=== PATIENT | female | born 1995 | race African-American/Black ===

== ENCOUNTER 2016-07-15 14:46 | Emergency (ER) | payer OTHER ==
[~2016-07-15] VITALS: Ht 157.5 cm; Wt 55.0 kg
[~2016-07-15 14:46] MED LIST: IBUP800T23 PO; ROBA750T3 PO; ZITH250T PO
[2016-07-15 14:49] VITALS: BP 124/58; PULSE 93; RESP 16; TEMP 98; O2SAT 99
[2016-07-15] MEDS ORDERED: BENZ100 PO (15:36)
[2016-07-15] MEDS ORDERED: MEDR4PAK PO (15:36)
[2016-07-15] MEDS ORDERED: ZITHTAB PO (15:36)
--- NOTE | 2016-07-15 15:38 | PD ---
HPI Chief Complaint: ENT Complaint Time Seen by Provider: 15:36 Travel History International Travel<30 days: No Contact w/Intl Traveler<30days: No Traveled to known affect area: No History of Present Illness HPI 20-year-old female presents to the emergency department for evaluation of cough for 2 weeks. Patient states that 2 weeks ago she had cold symptoms with runny nose, nasal congestion, fever and cough. States that since then the cough has persisted and worsened. States she not shortness of breath and productive cough with green sputum. Denies any chest pain, lightheadedness, dizziness, nausea, vomiting, diarrhea. States she has been taking smvv-[id number]-[id number] cough medications without improvement of symptoms. Denies any medical conditions. Denies , last menstrual period 3 days ago. No recent travel or sick contacts. No other complaints. PFSH Past Medical History Medical History: Denies Significant Hx ?: Not LMP: 07/11/16 Social History Alcohol Use: No Tobacco Use: No Substance Use: No Allergies-Medications (Allergen,Severity, Reaction): Coded Allergies: No Known Allergies (Unverified , 07/15/16) Reported Meds & Prescriptions Reported Meds & Active Scripts Active Tessalon Perles (Benzonatate) 100 Mg Cap 100 Mg PO TID PRN 7 Days Medrol Dosepak (Methylprednisolone) 4 Mg Dspk 4 Mg PO DIRECTED Per Pharmacist direction Zithromax Z-Sanjay (Azithromycin) 250 Mg Dspk 250 Mg PO DIRECTED 500 MG (2 tabs) day 1, then 1 tab days 2-5. Review of Systems Except as stated in HPI: all other systems reviewed are Neg Physical Exam Narrative GENERAL: Well-nourished and well-developed pleasant female patient in no acute distress. SKIN: Warm and dry. HEAD: Normocephalic and atraumatic. EYES: No injection, drainage, or hyphema noted. PERRLA. EOMI. ENT: No nasal drainage noted. Oropharynx is clear and the TMs are normal with good landmarks. NECK: Supple and the trachea is midline. CARDIOVASCULAR: Regular rate and rhythm. RESPIRATORY: Decreased breath sounds at the left lung base. No accessory muscle use, wheezing, rhonchi, or crackles. NEUROLOGICAL: Awake, alert, and oriented. Normal speech and gait. Cranial nerves are grossly intact. Data Data Last Documented VS Vital Signs Date Time Temp Pulse Resp B/P Pulse Ox O2 Delivery O2 Flow Rate FiO2 07/15/16 14:49 98.0 93 16 124/58 99 MDM Medical Decision Making Medical Screen Exam Complete: Yes Emergency Medical Condition: Yes Differential Diagnosis Bronchitis versus viral illness versus early pneumonia Narrative Course 20-year-old female presents to the emergency department for evaluation of productive cough for 2 weeks. Patient is afebrile, vital signs are stable. She does have a little bit of decreased lung sounds in the left base but overall physical exam is unremarkable. We'll treat the patient for early pneumonia with a Z-Sanjay, Medrol Dosepak and Tessalon Perles. Discussed supportive care and when to return to the emergency Department. Advised follow- up with her PCP. Patient verbalizes understanding and agreement with treatment plan. Diagnosis Primary Impression: Acute bronchitis Qualified Code: J20.9 - Acute bronchitis, unspecified organism Referrals: Primary Care Physician Patient Instructions: Acute Bronchitis (ED), General Instructions Additional Instructions: Take [id number] Mucinex DM as directed on the box. Take medications as prescribed. Follow-up with your Primary Care Physician. Return to the ED for any acute worsening of symptoms. Med/Other Pt SpecificInfo: Prescription(s) given Scripts Benzonatate (Tessalon Perles)100 Mg [id number] Mg PO TID PRN (COUGH) 7 Days Ref 0 Prov:Rich Keith MD 07/15/16 Methylprednisolone Dosepak (Medrol Dosepak)4 Mg Dspk4 Mg PO DIRECTED #1 DSPK Ref 0 Per Pharmacist direction Prov:Rich Keith MD 07/15/16 Azithromycin (Zithromax Z-Sanjay)250 Mg [id number] Mg PO DIRECTED #1 DSPK Ref 0 500 MG (2 tabs) day 1, then 1 tab days 2-5. Prov:Rich Keith MD 07/15/16 Disposition: 01 DISCHARGE HOME Condition: Stable Pratima Sánchez Jul 15, 2016 15:38
== END 2016-07-15 16:18 | disposition home or self-care (01) ==
LOC: NEPB 14:46
DX: J20.9 Acute bronchitis, unspecified (principal)
CPT/HCPCS: 99283

== ENCOUNTER 2016-07-31 01:07 | Emergency (ER) | payer OTHER ==
[~2016-07-31 01:07] MED LIST changes: +BENZ100 PO; -IBUP800T23 PO; +MEDR4PAK PO; -ROBA750T3 PO; -ZITH250T PO; +ZITHTAB PO
[2016-07-31 01:09] VITALS: BP 114/68; PULSE 67; RESP 14; TEMP 98.1; O2SAT 100
--- NOTE | 2016-07-31 02:22 | PD ---
HPI Chief Complaint: Training Project Manager Problem/Complaint Time Seen by Provider: 02:09 Travel History International Travel<30 days: No Contact w/Intl Traveler<30days: No Traveled to known affect area: No History of Present Illness HPI The patient is a 20-year-old Mire[place] female who presents emergency department for evaluation of possible sexually transmitted infections. The patient states she has been having protected sex for the last month and would like to be checked for HIV, gonorrhea, chlamydia, and any other sexual transmitted infections. The patient denies any current vaginal discharge, dysuria, frequency, or urgency. She does complain of irregular menstrual cycles , states she is currently on her menstrual cycle. The patient denies a fever, chills, or sweats. The patient denies any nausea, vomiting, diarrhea, abdominal pain, or pelvic pain. PFSH Past Medical History Medical History: Denies Significant Hx Diminished Hearing: No Immunizations Current: Yes Tetanus Vaccination: Unknown Influenza Vaccination: No ?: Not LMP: 07/30/2016 Social History Alcohol Use: No Tobacco Use: No Substance Use: No Allergies-Medications (Allergen,Severity, Reaction): Coded Allergies: No Known Allergies (Unverified , 07/31/16) Reported Meds & Prescriptions Reported Meds & Active Scripts Active Tessalon Perles (Benzonatate) 100 Mg Cap 100 Mg PO TID PRN 7 Days Zithromax Z-Sanjay (Azithromycin) 250 Mg Dspk 250 Mg PO DIRECTED 500 MG (2 tabs) day 1, then 1 tab days 2-5. Review of Systems General / Constitutional: No: Fever Gastrointestinal: No: Nausea, Vomiting, Abdominal Pain Genitourinary: Positive: Vaginal Bleeding (currently on her menstrual cycle), No: Urgency, Frequency, Dysuria, Pelvic Pain, Discharge Musculoskeletal: No: Myalgias, Arthralgias Skin: No Rash Physical Exam Narrative GENERAL: Awake, alert, nontoxic-appearing 20-year-old female who appears her stated age and is in no acute respiratory distress. SKIN: Warm and dry. HEAD: Atraumatic. Normocephalic. GASTROINTESTINAL: Abdomen soft, non-tender, nondistended. Back: No CVA tenderness. Genitourinary: Deferred, patient states she is currently on her menstrual cycle and does not want a pelvic exam. MUSCULOSKELETAL: No obvious deformities. No clubbing. No cyanosis. No edema. NEUROLOGICAL: Awake and alert. No obvious cranial nerve deficits. Motor grossly within normal limits. Normal speech. PSYCHIATRIC: Appropriate mood and affect; insight and judgment normal. Data Data Last Documented VS Vital Signs Date Time Temp Pulse Resp B/P Pulse Ox O2 Delivery O2 Flow Rate FiO2 07/31/16 01:09 98.1 67 14 114/68 100 Room Air Orders Gc And Chlamydia Pcr (07/31/16 02:15) Ua Includes Microscopic (07/31/16 02:15) Ed Urine Pregnancytest Poc (07/31/16 02:15) Azithromycin Powd Pack (Zithromax Powd P (07/31/16 03:15) Rocephin 250mg Vial Im X 1 (07/31/16 03:15) Lidocaine 1% Inj (50 Ml) (Xylocaine 1% I (07/31/16 03:15) Labs Laboratory Tests Test 07/31/16 02:30 Urine Color YELLOW Urine Turbidity HAZY Urine pH 6.0 Urine Specific [place] 1.029 Urine Protein 30 mg/dL Urine Glucose (UA) NEG mg/dL Urine Ketones 10 mg/dL Urine Occult Blood MOD Urine Nitrite NEG Urine Bilirubin NEG Urine Urobilinogen 2.0 MG/DL Urine Leukocyte Esterase SMALL Urine RBC /hpf Urine WBC 11 /hpf Urine WBC Clumps RARE Urine Squamous Epithelial 5 /hpf Cells Urine Bacteria MANY /hpf Urine Mucus MANY /lpf MDM Medical Decision Making Medical Screen Exam Complete: Yes Emergency Medical Condition: Yes Medical Record Reviewed: Yes Interpretation(s) Laboratory Tests Test 07/31/16 02:30 Urine Color YELLOW Urine Turbidity HAZY Urine pH 6.0 Urine Specific [place] 1.029 Urine Protein 30 mg/dL Urine Glucose (UA) NEG mg/dL Urine Ketones 10 mg/dL Urine Occult Blood MOD Urine Nitrite NEG Urine Bilirubin NEG Urine Urobilinogen 2.0 MG/DL Urine Leukocyte Esterase SMALL Urine RBC /hpf Urine WBC 11 /hpf Urine WBC Clumps RARE Urine Squamous Epithelial 5 /hpf Cells Urine Bacteria MANY /hpf Urine Mucus MANY /lpf Differential Diagnosis Differential diagnosis includes cervicitis, PID, UTI, , gonorrhea, chlamydia, other STI's. Narrative Course The patient deferred a pelvic examination, states she is currently on her menstrual cycle and had a pelvic exam one month ago for her Pap smear. I advised the patient I cannot test for a wet prep without good exam, however, patient does not want a pelvic exam. UA was sent to lab for UA gonorrhea/ chlamydia PCR. Bedside test was obtained. The patient was advised to go to the health department for testing of possible HIV and/or syphilis. Patient is advised to wear condom. UA test is negative. However, UA does reveal WBC clumps and white cells with leukocyte esterase, patient denies any dysuria, frequency, or urgency. Therefore, after discussion with patient was agreed the patient will be treated for gonorrhea/chlamydia. Therefore, patient was administered Rocephin 250 mg IM and Zithromax 1 g by mouth. Diagnosis Primary Impression: Routine screening for STI (sexually transmitted infection) Patient Instructions: General Instructions Additional Instructions: Follow-up with the [facility] for HIV and syphilis testing. Wear condoms during sexual intercourse. Follow-up with a primary physician. Disposition: 01 DISCHARGE HOME Condition: Stable Heriberto Montelongo MD Jul 31, 2016 02:22
[2016-07-31 02:56] LABS: BACTERIA, URINE MANY /hpf; BLOOD, URINE MOD (NEG); GLUCOSE,URINE NEG (NEG); KETONE, URINE 10 mg/dL (NEG); MUCUS URINE MANY /lpf (OCC); NITRITE,URINE NEG (NEG); SQUAMOUS EPITHELIAL CELL URINE 5 /hpf (0-5); URINE COLOR YELLOW (YELLW/STRAW)
[2016-07-31] MEDS ORDERED: cefTRIAXone 250 MG VIAL IM ONE (03:15)
[2016-07-31] MEDS ORDERED: LIDOCAINE HCL 1% 50 ML VIAL IM ONE (03:15)
[2016-07-31] MEDS ORDERED: AZITHROMYCIN PWD FOR SUSP 1 GM PACKET PO ONE (03:15)
[2016-07-31 04:19] LABS: CHLAMYDIA PCR NOT DETECTED (NOT DETECT); NEISSERIA PCR NOT DETECTED (NOT DETECT)
== END 2016-07-31 04:04 | disposition home or self-care (01) ==
LOC: NEPE 01:07
DX: N92.6 Irregular menstruation, unspecified (principal); Z11.3 Encounter for screening for infections with a predominantly sexual mode of transmission
CPT/HCPCS: 81001; 84703; 87491; 87591; 96372; 99283; J0696